=== PATIENT | male | born 1985 ===

== ENCOUNTER 2024-08-12 04:30 | Emergency (ER) | payer SELFPAY ==
[~2024-08-12] VITALS: Ht 170.2 cm; Wt 78.0 kg
[2024-08-12 04:33] VITALS: BP 156/100; PULSE 80; RESP 18; TEMP 36.9; O2SAT 98
[2024-08-12] MEDS ORDERED: ACETAMINOPHEN 325MG TABLET PO ONE (04:45)
[2024-08-12] MEDS ORDERED: ALBUTEROL (0.083%) 2.5MG/3ML NEB HHN ONE (04:45)
[2024-08-12] MEDS ORDERED: GUAIFENESIN 600MG ER TABLET PO SCH (04:45)
== END 2024-08-12 04:45 | disposition left against medical advice (07) ==
LOC: ER 04:45
DX: F17.210 Nicotine dependence, cigarettes, uncomplicated (principal); F12.10 Cannabis abuse, uncomplicated
CPT/HCPCS: 99283